=== PATIENT | male | born 2000 | race Asian ===

== ENCOUNTER 2024-02-12 07:39 | Emergency (ER) | payer BC, SELFPAY ==
[2024-02-12 07:43] VITALS: BP 116/83
--- NOTE | 2024-02-12 08:06 | ED.GENMED ---
History of Present Illness
General
Chief Complaint: Male Genito-Urinary Symptoms
Time Seen by Provider: 02/12/24 08:04
History of Present Illness
History of Present Illness:
HPI: Patient presents with right-sided testicular pain and has history of left-sided testicular torsion managed with orchiopexy in 2017 while vacationing in [facility]. The pain that he experienced 8 hours ago only lasted for about a minute
or 2. When he had the left-sided testicular torsion his pain which persisted until he had surgery.
EXAM:
GENERAL: Well appearing in no distress
HEENT: Moist oral mucosa
: There is no testicular tenderness nor scrotal swelling, borderline cremasteric reflex
NEUROLOGIC: Excellent strength all extremities, no coordination deficits
PSYCHIATRIC: Appropriate mental status, normal insight and judgement
EXTREMITIES: Nontender, no edema, moves all extremities equally
SKIN: No rash, no lesions
TIME OF INITIAL ENCOUNTER: 8:25 AM
NUMBER AND COMPLEXITY OF PROBLEMS ADDRESSED AT THE ENCOUNTER
� Chronic conditions affecting care: Testicular torsion
� Acute Exacerbation and/or Progression of Chronic Illness: This is an acute problem
� Differential Diagnosis includes: Nonspecific testicular pain, testicular torsion
AMOUNT AND/OR COMPLEXITY OF DATA TO BE REVIEWED AND ANALYZED
� I performed an independent evaluation of and my interpretation is:
EKG:
CT:
X-rays:
Laboratory Studies: Urinalysis shows no evidence of infection or blood
Other: No evidence of torsion on ultrasound today.
� Review of other/old records: No old records for review in [facility]
� Clinical information was obtained by an independent historian: None needed
� Prescriptions/Medications Considered but not given:
� Further testing considered but not performed:
RISK OF COMPLICATIONS AND/OR MORBIDITY OR MORTALITY OF PATIENT MANAGEMENT
� Social determinants of health affecting care: Lives at home
� Discussion with other providers:
� Escalation of care including admission/observation vs risk of discharge considered: Given patient's history and location of earlier pain, ultrasound imaging obtained. He currently appears well and he was instructed to return
here if symptoms return. On reassessment at 10 AM, he remains to have no pain and there is no evidence of torsion on ultrasound imaging. It was emphasized to the patient that he must return if symptoms return.
Phy Exam
Physical Exam
Physical Exam:
See HPI
Course
Orders/Labs/Results
Orders:
Orders
02/12/24 08:14
Urinalysis Reflex To Culture Urgent
Date Specimen was Collected: 02/12/24
Time Specimen was Collected: 08:05
02/12/24 08:28
Scrotum US [US Scrotum] Urgent
Comment:
Reason For Exam: resolved R testic pain; h/o L torsion
Vital Signs
Initial and Last Documented VS:
Initial Vital Signs
Temp Pulse Resp BP Pulse Ox
97.6 F 65 18 116/83 98
02/12/24 07:43 02/12/24 07:43 02/12/24 07:43 02/12/24 07:43 02/12/24 07:43
Last Documented Vital Signs
Temp Pulse Resp BP Pulse Ox
97.6 F 61 15 110/60 100
02/12/24 07:43 02/12/24 09:57 02/12/24 09:57 02/12/24 09:57 02/12/24 09:57
*Critical Care Note
Total Time (30-74mins, 75-104mins- exclusive of procedures): Not Applicable
ED Attending Note
-
Portions of this chart may have been created with voice recognition software.� Occasional wrong word or��sound alike� substitutions may have occurred due to the inherent limitations of voice recognition software.
Discharge Plan
Departure
Referrals:
Andres Adam MD [Family Provider] -
Interventions
Interventions:
*Risk Screen - Suicide Last Done: 02/12/24 07:43
*General Assessment Last Done: 02/12/24 07:43
*Neglect/Abuse Screening Last Done: 02/12/24 07:43
*ED COVID-19 Vaccine History Last Done: 02/12/24 07:43
ED-Male Genitourinary Assessment Last Done: 02/12/24 08:08
Discharge Date and Time
Print Language: MONTENEGRIN
[2024-02-12 08:13] VITALS: BMI 22.0
[2024-02-12 08:33] LABS: Urine Albumin Negative (Neg - Trace); Urine Bilirubin Negative (Negative); Urine Character Clear (Clear); Urine Color Yellow; Urine Glucose Negative (Negative); Urine Ketone Negative (Negative); Urine Leukocyte Negative (Negative); Urine Nitrite Negative (Negative); Urine Occult Blood Negative (Negative); Urine Urobilinogen Negative (Neg - 1+); Urine pH 6.5 (5.0-9.0)
[2024-02-12 09:57] VITALS: BP 110/60
== END 2024-02-12 10:25 | disposition home or self-care (01) ==
LOC: EMR 07:39
PROVIDERS: EMERGENCY PHYSICIAN Emergency Medicine; FAMILY PHYSICIAN Internal Medicine
DX: N50.811 Right testicular pain (principal)
CPT/HCPCS: 99284; 76870; 81003; 93976